=== PATIENT | female | born 1940 | race Caucasian/White ===

== ENCOUNTER 2019-05-22 16:33 | Inpatient (IN) ==
[2019-05-22] MEDS ORDERED: AZITHROMYCIN INJ 500 MG in SODIUM CHLORIDE 0.9% 250 ML IV STA (17:48)
[2019-05-22] MEDS ORDERED: methylPREDNISolone SOD SUC 125 MG/2 ML VIAL IV STA (17:48)
[2019-05-22] MEDS ORDERED: ONDANSETRON 4 MG/2 ML VIAL IV STA (17:48)
[2019-05-22] MEDS ORDERED: ALBUTEROL/IPRATROPIUM 3 ML NEB RESP TX STA ×2 (17:48→19:23)
[2019-05-22] MEDS ORDERED: methylPREDNISolone SOD SUC 125 MG/2 ML VIAL ONE (18:10)
[2019-05-22 18:20] LABS: Basophils % 0.5 % (0.0-0.8); Eosinophils # 0.1 10*3/uL (0.0-0.87); Eosinophils % 2.4 % (0.00-10.9); Hematocrit 39.5 VOL% (35.7-47.0); Hemoglobin 12.4 GM/DL (12.0-16.0); Immature Granulocytes % 0.5 %; Immature Granulocytes Absolute 0.03 #; Lymphocytes # 1.1 10*3/uL (1.4-4.0); Lymphocytes % 18.9 % (21.3-54.2); Mean Corpuscular HGB Conc 31.4 GM/DL (32-36); Mean Corpuscular Volume 93.6 FL (87-102); Mean Platelet Volume 10.6 FL (9.6-12.0); Monocytes % 9.8 % (1.7-12.7); Neutrophils % 67.9 % (38.7-73.9); Platelet Count 184 T/CUMM (130-400); Red Blood Count 4.22 MC/CUMM (3.8-5.5); Red Cell Distribution Width 14.1 % (9.3-17.3); White Blood Count 5.7 T/CUMM (4-12)
[2019-05-22 18:33] LABS: INR 0.9; Partial Thromboplastin Time 26.4 SECS (20.8-36.0)
[2019-05-22 18:39] LABS: Alanine Aminotransferase 31 U/L (13-56); Albumin 3.7 G/DL (3.4-5.0); Alkaline Phosphatase 87 U/L (45-117); Aspartate Amino Transferase 25 U/L (0-37); Bilirubin,Total < 0.39 MG/DL (0.2-1.0); Blood Urea Nitrogen 19 MG/DL (7-18); Calcium 8.6 MG/DL (8.5-10.1); Estimated Glom Filtration Rate 61 ML/MIN; Glucose 94 MG/DL (74-106); Osmolality,Calculated 282.3 MOS/KG (273-304); Total Protein 6.6 G/DL (6.4-8.3); Troponin I 0.087 NG/ML (0.00-0.045)
[2019-05-22] MEDS ORDERED: FUROSEMIDE 40 MG/4 ML VIAL IV STA (18:53)
[2019-05-22] MEDS ORDERED: guaiFENesin/DM ER 600-30 MG TABLET PO PRN (21:52)
[2019-05-22] MEDS ORDERED: ONDANSETRON 4 MG/2 ML VIAL IV PRN (21:52)
[2019-05-22] MEDS ORDERED: ALBUTEROL/IPRATROPIUM 3 ML NEB RESP TX PRN (21:56)
[2019-05-22 23:33] LABS: Troponin I 0.091 NG/ML (0.00-0.045)
[2019-05-22] MEDS: cefTRIAXone 1,000 MG in SYRINGE 1 EACH IV SCH (23:45)
[2019-05-22] MEDS: ENOXAPARIN 40 MG/0.4 ML SYRINGE SUBCUT SCH (23:47)
[2019-05-22] MEDS: SIMVASTATIN 20 MG TABLET PO SCH (23:53)
[2019-05-23 00:43] LABS: Apearance,Urine CLEAR (Clear); Bacteria,Urine Occasional /HPF (Few); Bilirubin,Urine Negative (Negative); Blood, Urine Negative (Negative); Glucose,Urine (UA) Negative (Negative); Ketones,Urine Negative (Negative); Mucus,Urine Occasional /LPF (Occasional); Nitrite,Urine Negative (Negative); Protein,Urine Negative; Urine Color Straw (Yellow); Urine Specific Gravity 1.005 (1.001-1.035); Urine Urobilinogen < 2.0 EU/DL (0.2-1.0); WBC,Urine <1 /HPF (0-6)
[2019-05-23] MEDS ORDERED: INFLUENZA VIRUS VACCINE 0.5 ML SYRINGE IM ONE (01:22)
[2019-05-23] MEDS ORDERED: PNEUMOCOCCAL VACCINE (13 VALENT) 0.5 ML SYRINGE IM ONE (01:30)
[2019-05-23] MEDS: methylPREDNISolone SOD SUC 40 MG/1 ML VIAL IV SCH ×3 (03:09→18:03)
[2019-05-23] MEDS: ACETAMINOPHEN 325 MG TABLET PO PRN ×3 (03:11→20:46)
[2019-05-23] MEDS ORDERED: CYCLOBENZAPRINE 10 MG TABLET PO ONE (03:37)
[2019-05-23 05:15] LABS: Basophils % 0.1 % (0.0-0.8); Hematocrit 36.8 VOL% (35.7-47.0); Hemoglobin 11.8 GM/DL (12.0-16.0); Immature Granulocytes % 0.6 %; Immature Granulocytes Absolute 0.05 #; Lymphocytes # 0.4 10*3/uL (1.4-4.0); Lymphocytes % 5.2 % (21.3-54.2); Mean Corpuscular HGB Conc 32.1 GM/DL (32-36); Mean Corpuscular Volume 93.2 FL (87-102); Monocytes % 1.8 % (1.7-12.7); Neutrophils % 92.3 % (38.7-73.9); Platelet Count 185 T/CUMM (130-400); Red Blood Count 3.95 MC/CUMM (3.8-5.5); White Blood Count 8.4 T/CUMM (4-12)
[2019-05-23 05:46] LABS: Albumin 3.5 G/DL (3.4-5.0); Bilirubin,Total 0.8 MG/DL (0.2-1.0); Calcium 8.8 MG/DL (8.5-10.1); Osmolality,Calculated 282.4 MOS/KG (273-304); Risk Ratio 4.4; Total Protein 6.7 G/DL (6.4-8.3); VLDL CHOLESTEROL 24.6 MG/DL
[2019-05-23 05:48] LABS: Troponin I 0.071 NG/ML (0.00-0.045)
[2019-05-23 06:27] LABS: Lymphocytes 3 % (20-55); Platelet Estimate Normal; Segmented Neutrophils 96 % (50-85); Total Cells Counted 100
[2019-05-23 06:28] LABS: Ovalocytes Slight; Stomatocytes Slight
[2019-05-23] MEDS ORDERED: Fluticasone Furoate-Vilanterol [Breo Ellipta] INH SCH (09:00)
[2019-05-23] MEDS: MULTIVITAMIN (CENTRUM) TABLET PO SCH (09:43)
[2019-05-23] MEDS: ASPIRIN CHEW 81 MG TABLET PO SCH (09:43)
[2019-05-23] MEDS: AZITHROMYCIN 250 MG TABLET PO SCH (09:44)
[2019-05-23] MEDS: FUROSEMIDE 40 MG/4 ML VIAL IV SCH ×2 (09:45→15:20)
[2019-05-23] MEDS: PANTOPRAZOLE 40 MG TABLET PO SCH (09:45)
[2019-05-23] MEDS: URSODIOL 300 MG CAPSULE PO SCH ×3 (09:47→20:46)
[2019-05-23] MEDS: SIMVASTATIN 20 MG TABLET PO SCH (20:47)
[2019-05-23] MEDS: carvediloL 3.125 MG TABLET PO SCH (21:00)
[2019-05-23] MEDS: ENOXAPARIN 40 MG/0.4 ML SYRINGE SUBCUT SCH (22:00)
[2019-05-23] MEDS: cefTRIAXone 1,000 MG in SYRINGE 1 EACH IV SCH (22:04)
[2019-05-24] MEDS: methylPREDNISolone SOD SUC 40 MG/1 ML VIAL IV SCH ×3 (02:35→19:04)
[2019-05-24 05:07] LABS: Basophils % 0.1 % (0.0-0.8); Hematocrit 38.2 VOL% (35.7-47.0); Hemoglobin 11.9 GM/DL (12.0-16.0); Immature Granulocytes % 0.8 %; Immature Granulocytes Absolute 0.15 #; Lymphocytes # 0.6 10*3/uL (1.4-4.0); Lymphocytes % 3.4 % (21.3-54.2); Mean Corpuscular HGB Conc 31.2 GM/DL (32-36); Mean Platelet Volume 10.9 FL (9.6-12.0); Monocytes % 3.5 % (1.7-12.7); Neutrophils % 92.2 % (38.7-73.9); Platelet Count 193 T/CUMM (130-400); Red Blood Count 4.02 MC/CUMM (3.8-5.5); White Blood Count 18.7 T/CUMM (4-12)
[2019-05-24 05:39] LABS: Calcium 8.4 MG/DL (8.5-10.1); Osmolality,Calculated 286.5 MOS/KG (273-304)
[2019-05-24 05:59] LABS: Anisocytosis Slight; Band Neutrophils 18 % (0-10); Lymphocytes 5 % (20-55); Platelet Estimate Normal; Segmented Neutrophils 74 % (50-85); Total Cells Counted 100
[2019-05-24] MEDS: LISINOPRIL 5 MG TABLET PO SCH (09:35)
[2019-05-24] MEDS: URSODIOL 300 MG CAPSULE PO SCH ×3 (09:35→22:05)
[2019-05-24] MEDS: FUROSEMIDE 40 MG/4 ML VIAL IV SCH (09:35)
[2019-05-24] MEDS: AZITHROMYCIN 250 MG TABLET PO SCH (09:35)
[2019-05-24] MEDS: ASPIRIN CHEW 81 MG TABLET PO SCH (09:36)
[2019-05-24] MEDS: carvediloL 3.125 MG TABLET PO SCH ×2 (09:36→22:05)
[2019-05-24] MEDS: PANTOPRAZOLE 40 MG TABLET PO SCH (09:36)
[2019-05-24] MEDS: MULTIVITAMIN (CENTRUM) TABLET PO SCH (09:37)
[2019-05-24] MEDS: ALBUTEROL/IPRATROPIUM 3 ML NEB RESP TX SCH ×2 (16:16→19:14)
[2019-05-24] MEDS: BUDESONIDE 0.5 MG/2 ML NEB RESP TX SCH (19:14)
[2019-05-24] MEDS: cefTRIAXone 1,000 MG in SYRINGE 1 EACH IV SCH (22:05)
[2019-05-24] MEDS: SIMVASTATIN 20 MG TABLET PO SCH (22:05)
[2019-05-24] MEDS: ENOXAPARIN 40 MG/0.4 ML SYRINGE SUBCUT SCH (22:08)
[2019-05-25] MEDS: ALBUTEROL/IPRATROPIUM 3 ML NEB RESP TX SCH ×6 (00:39→19:52)
[2019-05-25] MEDS: methylPREDNISolone SOD SUC 40 MG/1 ML VIAL IV SCH ×2 (03:00→09:00)
[2019-05-25 05:17] LABS: Basophils % 0.1 % (0.0-0.8); Hematocrit 37.9 VOL% (35.7-47.0); Hemoglobin 11.8 GM/DL (12.0-16.0); Immature Granulocytes % 1.5 %; Immature Granulocytes Absolute 0.29 #; Lymphocytes # 0.8 10*3/uL (1.4-4.0); Lymphocytes % 4.1 % (21.3-54.2); Mean Corpuscular HGB Conc 31.1 GM/DL (32-36); Mean Platelet Volume 10.7 FL (9.6-12.0); Monocytes % 1.6 % (1.7-12.7); Neutrophils % 92.7 % (38.7-73.9); Platelet Count 190 T/CUMM (130-400); Red Blood Count 3.99 MC/CUMM (3.8-5.5); Red Cell Distribution Width 14.3 % (9.3-17.3); White Blood Count 19.8 T/CUMM (4-12)
[2019-05-25 05:39] LABS: Hypochromasia Slight; Lymphocytes 4 % (20-55); Segmented Neutrophils 96 % (50-85); Total Cells Counted 100
[2019-05-25 05:40] LABS: Microcytosis Slight; Ovalocytes Slight; Platelet Estimate Adequate
[2019-05-25 06:00] LABS: Calcium 8.2 MG/DL (8.5-10.1); Osmolality,Calculated 291.3 MOS/KG (273-304)
[2019-05-25] MEDS: BUDESONIDE 0.5 MG/2 ML NEB RESP TX SCH ×2 (07:10→19:52)
[2019-05-25] MEDS: LISINOPRIL 5 MG TABLET PO SCH (09:00)
[2019-05-25] MEDS: ASPIRIN CHEW 81 MG TABLET PO SCH (09:00)
[2019-05-25] MEDS: URSODIOL 300 MG CAPSULE PO SCH ×3 (09:01→20:37)
[2019-05-25] MEDS: PANTOPRAZOLE 40 MG TABLET PO SCH (09:01)
[2019-05-25] MEDS: MULTIVITAMIN (CENTRUM) TABLET PO SCH (09:01)
[2019-05-25] MEDS: FUROSEMIDE 20 MG TABLET PO SCH (09:01)
[2019-05-25] MEDS: carvediloL 3.125 MG TABLET PO SCH (09:08)
[2019-05-25] MEDS: predniSONE 20 MG TABLET PO SCH (10:17)
[2019-05-25] MEDS: SIMVASTATIN 20 MG TABLET PO SCH (20:37)
[2019-05-25] MEDS: ENOXAPARIN 40 MG/0.4 ML SYRINGE SUBCUT SCH (22:54)
[2019-05-25] MEDS: cefTRIAXone 1,000 MG in SYRINGE 1 EACH IV SCH (22:54)
[2019-05-26] MEDS: ALBUTEROL/IPRATROPIUM 3 ML NEB RESP TX SCH ×6 (00:15→19:21)
[2019-05-26 06:05] LABS: Basophils % 0.2 % (0.0-0.8); Hematocrit 36.3 VOL% (35.7-47.0); Hemoglobin 11.2 GM/DL (12.0-16.0); Immature Granulocytes % 1.5 %; Immature Granulocytes Absolute 0.23 #; Lymphocytes # 1.1 10*3/uL (1.4-4.0); Lymphocytes % 7.4 % (21.3-54.2); Mean Corpuscular HGB Conc 30.9 GM/DL (32-36); Mean Corpuscular Volume 95.5 FL (87-102); Mean Platelet Volume 10.4 FL (9.6-12.0); Monocytes % 5.7 % (1.7-12.7); Neutrophils % 85.2 % (38.7-73.9); Platelet Count 193 T/CUMM (130-400); Red Cell Distribution Width 14.1 % (9.3-17.3); White Blood Count 15.2 T/CUMM (4-12)
[2019-05-26 06:44] LABS: Calcium 7.7 MG/DL (8.5-10.1); Osmolality,Calculated 292.1 MOS/KG (273-304)
[2019-05-26] MEDS: BUDESONIDE 0.5 MG/2 ML NEB RESP TX SCH ×2 (07:06→19:21)
[2019-05-26] MEDS: FUROSEMIDE 20 MG TABLET PO SCH (08:09)
[2019-05-26] MEDS: PANTOPRAZOLE 40 MG TABLET PO SCH (08:09)
[2019-05-26] MEDS: URSODIOL 300 MG CAPSULE PO SCH ×3 (08:09→21:37)
[2019-05-26] MEDS: predniSONE 20 MG TABLET PO SCH (08:09)
[2019-05-26] MEDS: MULTIVITAMIN (CENTRUM) TABLET PO SCH (08:09)
[2019-05-26] MEDS: ASPIRIN CHEW 81 MG TABLET PO SCH (08:13)
[2019-05-26] MEDS ORDERED: METOPROLOL SUCCINATE XL 25 MG TABLET PO SCH (09:00)
[2019-05-26] MEDS ORDERED: ceFAZolin 2,000 MG in PREMIX 1 EACH IV SCH (12:00)
[2019-05-26] MEDS: NAFCILLIN 2,000 MG in SODIUM CHLORIDE 0.9% 100 ML IV SCH ×3 (12:22→21:37)
[2019-05-26] MEDS: amLODIPine 2.5 MG TABLET PO SCH (12:22)
[2019-05-26 12:45] LABS: Troponin I 0.052 NG/ML (0.00-0.045)
[2019-05-26] MEDS: guaiFENesin 200 MG/10 ML UDCUP PO PRN ×2 (17:34→21:37)
[2019-05-26] MEDS: ENOXAPARIN 40 MG/0.4 ML SYRINGE SUBCUT SCH (21:37)
[2019-05-26] MEDS: SIMVASTATIN 20 MG TABLET PO SCH (21:37)
[2019-05-27] MEDS: ALBUTEROL/IPRATROPIUM 3 ML NEB RESP TX SCH ×5 (00:07→15:40)
[2019-05-27] MEDS: NAFCILLIN 2,000 MG in SODIUM CHLORIDE 0.9% 100 ML IV SCH ×5 (01:10→17:32)
[2019-05-27] MEDS: BUDESONIDE 0.5 MG/2 ML NEB RESP TX SCH (07:52)
[2019-05-27] MEDS: predniSONE 20 MG TABLET PO SCH (09:43)
[2019-05-27] MEDS: URSODIOL 300 MG CAPSULE PO SCH ×3 (09:44→20:52)
[2019-05-27] MEDS: amLODIPine 2.5 MG TABLET PO SCH (09:44)
[2019-05-27] MEDS: ASPIRIN CHEW 81 MG TABLET PO SCH (09:44)
[2019-05-27] MEDS: PANTOPRAZOLE 40 MG TABLET PO SCH (09:44)
[2019-05-27] MEDS: MULTIVITAMIN (CENTRUM) TABLET PO SCH (09:44)
[2019-05-27] MEDS: FUROSEMIDE 20 MG TABLET PO SCH (09:44)
[2019-05-27] MEDS: guaiFENesin 200 MG/10 ML UDCUP PO PRN ×3 (14:48→22:26)
[2019-05-27] MEDS: CEFUROXIME 500 MG TABLET PO SCH (20:52)
[2019-05-27] MEDS: SIMVASTATIN 20 MG TABLET PO SCH (20:52)
[2019-05-27] MEDS: ENOXAPARIN 40 MG/0.4 ML SYRINGE SUBCUT SCH (22:26)
[2019-05-28] MEDS: ALBUTEROL/IPRATROPIUM 3 ML NEB RESP TX SCH ×2 (02:17→07:12)
[2019-05-28] MEDS: BUDESONIDE 0.5 MG/2 ML NEB RESP TX SCH ×2 (02:19→07:12)
[2019-05-28 04:08] LABS: Basophils # 0.1 10*3/uL (0.0-0.2); Basophils % 0.6 % (0.0-0.8); Eosinophils # 0.1 10*3/uL (0.0-0.87); Eosinophils % 0.5 % (0.00-10.9); Hematocrit 38.8 VOL% (35.7-47.0); Hemoglobin 12.2 GM/DL (12.0-16.0); Immature Granulocytes % 5.3 %; Immature Granulocytes Absolute 0.58 #; Lymphocytes # 2.2 10*3/uL (1.4-4.0); Lymphocytes % 20.6 % (21.3-54.2); Mean Corpuscular HGB Conc 31.4 GM/DL (32-36); Mean Corpuscular Volume 93.3 FL (87-102); Monocytes % 6.7 % (1.7-12.7); Neutrophils % 66.3 % (38.7-73.9); Platelet Count 188 T/CUMM (130-400); Red Blood Count 4.16 MC/CUMM (3.8-5.5); Red Cell Distribution Width 14.5 % (9.3-17.3); White Blood Count 10.9 T/CUMM (4-12)
[2019-05-28 04:22] LABS: Calcium 7.7 MG/DL (8.5-10.1); Osmolality,Calculated 292.7 MOS/KG (273-304)
[2019-05-28 04:36] LABS: Hypochromasia Slight; Lymphocytes 23 % (20-55); Platelet Estimate Normal; Segmented Neutrophils 72 % (50-85); Total Cells Counted 100
[2019-05-28 04:37] LABS: Stomatocytes Slight
[2019-05-28 08:29] VITALS: BP 140/83
[2019-05-28] MEDS: MULTIVITAMIN (CENTRUM) TABLET PO SCH (09:32)
[2019-05-28] MEDS: CEFUROXIME 500 MG TABLET PO SCH (09:33)
[2019-05-28] MEDS: PANTOPRAZOLE 40 MG TABLET PO SCH (09:33)
[2019-05-28] MEDS: amLODIPine 2.5 MG TABLET PO SCH (09:33)
[2019-05-28] MEDS: predniSONE 20 MG TABLET PO SCH (09:33)
[2019-05-28] MEDS: ASPIRIN CHEW 81 MG TABLET PO SCH (09:33)
[2019-05-28] MEDS: FUROSEMIDE 20 MG TABLET PO SCH (09:33)
[2019-05-28] MEDS: URSODIOL 300 MG CAPSULE PO SCH (09:34)
[2019-05-28] MEDS: guaiFENesin 200 MG/10 ML UDCUP PO PRN (09:36)
[2019-06-30] MEDS ORDERED: DENOSUMAB 60 MG/ML SYRINGE SUBCUT SCH (09:00)
== END 2019-05-28 11:40 | disposition home health service (06) | DRG 190 ==
LOC: N.ED 16:33 → N.EDINP 21:52 → N.4E 22:46
PROVIDERS: ADMIT Internal Medicine; ATTEND Internal Medicine

== ENCOUNTER 2020-02-03 09:26 | Observation (INO) ==
[2020-02-03 09:49] LABS: Basophils % 0.4 % (0.0-0.8); Eosinophils # 0.2 10*3/uL (0.0-0.87); Eosinophils % 3.4 % (0.00-10.9); Hematocrit 41.5 VOL% (35.7-47.0); Hemoglobin 13.5 GM/DL (12.0-16.0); Immature Granulocytes % 0.6 %; Immature Granulocytes Absolute 0.04 #; Lymphocytes # 1.5 10*3/uL (1.4-4.0); Lymphocytes % 21.8 % (21.3-54.2); Mean Corpuscular HGB Conc 32.5 GM/DL (32-36); Mean Corpuscular Volume 92.2 FL (87-102); Mean Platelet Volume 10.2 FL (9.6-12.0); Monocytes % 6.3 % (1.7-12.7); Neutrophils % 67.5 % (38.7-73.9); Platelet Count 182 T/CUMM (130-400); Red Cell Distribution Width 13.5 % (9.3-17.3)
[2020-02-03 10:15] LABS: Albumin 3.7 G/DL (3.4-5.0); Bilirubin,Total 0.6 MG/DL (0.2-1.0); Calcium 9.3 MG/DL (8.5-10.1); Osmolality,Calculated 277.5 MOS/KG (273-304); Total Protein 7.6 G/DL (6.4-8.3)
[2020-02-03] MEDS ORDERED: DEXTROSE 50% 25 GM/50 ML VIAL IV PRN (11:17)
[2020-02-03] MEDS ORDERED: GLUCAGON 1 MG VIAL IM PRN (11:17)
[2020-02-03] MEDS ORDERED: ACETAMINOPHEN 325 MG TABLET PO PRN (11:17)
[2020-02-03] MEDS ORDERED: ONDANSETRON 4 MG/2 ML VIAL IV PRN (11:17)
[2020-02-03] MEDS ORDERED: hydrALAZINE 20 MG/1 ML VIAL IV PRN (11:17)
[2020-02-03] MEDS ORDERED: NITROGLYCERIN SL 0.4 MG TABLET SL PRN (11:21)
[2020-02-03] MEDS ORDERED: SODIUM CHLORIDE 0.9% 1,000 ML IV SCH (11:30)
[2020-02-03 12:31] LABS: Thyroid Stimulating Hormone 2.94 uIU/ml (0.358-3.74)
[2020-02-03] MEDS: PANTOPRAZOLE 40 MG TABLET PO SCH ×2 (12:35→20:38)
[2020-02-03] MEDS: METOPROLOL TARTRATE 25 MG TABLET PO SCH ×2 (12:35→20:39)
[2020-02-03] MEDS: ENOXAPARIN 40 MG/0.4 ML SYRINGE SUBCUT SCH (12:40)
[2020-02-03] MEDS: LOSARTAN 50 MG TABLET PO SCH (12:49)
[2020-02-03] MEDS ORDERED: ALUM/MAG/SIMETH/LIDO VISC 1:1 30 ML BOTTLE PO ONE (14:57)
[2020-02-03] MEDS: ursodioL 300 MG CAPSULE PO SCH ×2 (16:37→17:04)
[2020-02-03] MEDS ORDERED: SIMVASTATIN 20 MG TABLET PO SCH (21:00)
[2020-02-03] MEDS ORDERED: PANTOPRAZOLE 40 MG TABLET PO SCH (21:00)
[2020-02-04 00:59] LABS: Apearance,Urine CLEAR (Clear); Bacteria,Urine Occasional /HPF (Few); Bilirubin,Urine Negative (Negative); Blood, Urine Negative (Negative); Glucose,Urine (UA) Negative (Negative); Hyaline Casts,Urine 1 /LPF (0-3); Ketones,Urine Negative (Negative); Mucus,Urine Occasional /LPF (Occasional); Nitrite,Urine Negative (Negative); Protein,Urine Negative; RBC,Urine 1 /HPF (0-4); Squamous Epithelial Cell,Urine Occasional /HPF (0-10); Urine Color Yellow (Yellow); Urine Specific Gravity 1.019 (1.001-1.035); Urine Urobilinogen < 2.0 EU/DL (0.2-1.0); WBC,Urine 5 /HPF (0-6)
[2020-02-04 04:09] LABS: Basophils % 0.5 % (0.0-0.8); Eosinophils # 0.2 10*3/uL (0.0-0.87); Eosinophils % 2.4 % (0.00-10.9); Hematocrit 39.8 VOL% (35.7-47.0); Hemoglobin 12.3 GM/DL (12.0-16.0); Immature Granulocytes % 0.6 %; Immature Granulocytes Absolute 0.05 #; Lymphocytes # 1.4 10*3/uL (1.4-4.0); Lymphocytes % 17.5 % (21.3-54.2); Mean Corpuscular HGB Conc 30.9 GM/DL (32-36); Mean Corpuscular Volume 95.7 FL (87-102); Mean Platelet Volume 10.2 FL (9.6-12.0); Monocytes % 7.2 % (1.7-12.7); Neutrophils % 71.8 % (38.7-73.9); Platelet Count 154 T/CUMM (130-400); Red Blood Count 4.16 MC/CUMM (3.8-5.5); Red Cell Distribution Width 13.5 % (9.3-17.3); White Blood Count 7.9 T/CUMM (4-12)
[2020-02-04 04:54] LABS: Osmolality,Calculated 281.4 MOS/KG (273-304)
[2020-02-04] MEDS ORDERED: FUROSEMIDE 20 MG TABLET PO SCH (09:00)
[2020-02-04] MEDS ORDERED: ASPIRIN CHEW 81 MG TABLET PO SCH (09:00)
[2020-02-04] MEDS ORDERED: FLUTICASONE FUROATE VILANTEROL INH SCH (09:00)
[2020-02-04] MEDS ORDERED: MULTIVITAMIN (CENTRUM) TABLET PO SCH (09:00)
[2020-02-04] MEDS ORDERED: REGADENOSON 0.4 MG/5 ML SYRINGE IV ONE (10:11)
[2020-02-04] MEDS: LOSARTAN 50 MG TABLET PO SCH (10:22)
[2020-02-04] MEDS: ursodioL 300 MG CAPSULE PO SCH ×2 (10:22→13:38)
[2020-02-04] MEDS: METOPROLOL TARTRATE 25 MG TABLET PO SCH (10:22)
[2020-02-04] MEDS: PANTOPRAZOLE 40 MG TABLET PO SCH (10:22)
[2020-02-04 13:25] VITALS: BP 150/78
[2020-02-04] MEDS: ENOXAPARIN 40 MG/0.4 ML SYRINGE SUBCUT SCH (13:38)
== END 2020-02-04 16:13 | disposition home or self-care (01) ==
LOC: N.EDINP 09:26 → N.ED 09:26 → N.TELEN 14:55
PROVIDERS: ADMIT Internal Medicine; ATTEND Internal Medicine